=== PATIENT | female | born 1960 | race Two or more races ===

== ENCOUNTER 2016-11-05 12:16 | Emergency (ER) | payer OTHER ==
[~2016-11-05] VITALS: Ht 149.9 cm; Wt 54.5 kg
[2016-11-05] MEDS ORDERED: KETOROLAC TROMETHAMINE 60 MG/2 ML VIAL IM ONE (14:45)
[2016-11-05] MEDS ORDERED: HYDROCODONE/ACETAMINOPHEN 5-325 MG TABLET PO ONE (14:45)
[2016-11-05 15:11] VITALS: BP 139/77
== END 2016-11-05 15:35 | disposition home or self-care (01) ==
LOC: EMS 12:17
DX: S33.8XXA Sprain of other parts of lumbar spine and pelvis, initial encounter (principal); X58.XXXA Exposure to other specified factors, initial encounter; Y93.89 Activity, other specified; Y92.89 Other specified places as the place of occurrence of the external cause; Y99.8 Other external cause status
CPT/HCPCS: 96372; 99283; J1885

== ENCOUNTER → 2016-11-21 | Outpatient (CLI) | payer OTHER ==
[~2016-11-21] MED LIST: ACET-2247 PO
[2016-11-21 09:44] LABS: BASOPHILS # (AUTO) 0.06 K/uL (0.00-0.20); BASOPHILS % (AUTO) 1.1 % (0.0-2.0); EOSINOPHILS % (AUTO) 1.99 % (1.0-6.0); HEMATOCRIT 38.4 % (36-46); LYMPHOCYTES # (AUTO) 2.4 K/uL (1.0-4.8); LYMPHOCYTES % (AUTO) 47.1 % (22.0-44.0); MEAN CORPUSCULAR HGB CONC 33.8 G/dL (31.0-37.0); MEAN CORPUSCULAR VOLUME 92 fL (80-100); MONOCYTES # (AUTO) 0.4 K/uL (0.1-1.0); MONOCYTES % (AUTO) 6.8 % (2.0-9.0); NEUTROPHILS # (AUTO) 2.2 K/uL (1.8-7.7); PLATELET COUNT (AUTO) 274 K/uL (150-450); RED BLOOD CELL COUNT(AUTO) 4.18 MIL/uL (4.00-5.20); RED CELL DISTRIBUTION WIDTH 13.8 % (11.5-14.5); WHITE BLOOD COUNT (AUTO) 5.1 K/uL (4.5-11.0)
[2016-11-21 09:52] LABS: ANION GAP 9 mmol/L (8-16); ASPARTATE AMINOTRANSFERASE 26 U/L (15-37); BILIRUBIN,TOTAL 0.3 mg/dL (0.1-1.0); CALCIUM, TOTAL 8.9 mg/dL (8.8-10.5); CARBON DIOXIDE 26 mmol/L (22-29); CHLORIDE 104 mmol/L (98-107); CREATININE 0.64 mg/dL (0.60-1.30); GLOMERULAR FILTR. RATE CALC > 60 mL/min (>60); POTASSIUM 4.3 mmol/L (3.5-5.1); SODIUM SERUM 139 mmol/L (136-145); UREA NITROGEN, BLOOD 13 mg/dL (7-18)
[2016-11-21 09:53] LABS: ALANINE AMINOTRANSFERASE 46 U/L (12-78); ALBUMIN 3.9 g/dL (3.4-5.0); THYROID STIMULATING HORMONE 2.33 uIU/mL (0.36-3.74); TOTAL PROTEIN, SERUM 8.4 g/dL (6.4-8.2)
== END | disposition home or self-care (01) ==
LOC: LABPV 07:11
PROVIDERS: ATTEND Legal Medicine
DX: Z00.00 Encounter for general adult medical examination without abnormal findings (principal)
CPT/HCPCS: 82306; 84443

== ENCOUNTER → 2016-11-22 | Outpatient (CLI) | payer OTHER | END | disposition home or self-care (01) | LOC: RADMN 11:40 | PROVIDERS: ATTEND Legal Medicine | DX: M48.06 Spinal stenosis, lumbar region (principal) | CPT/HCPCS: 72148 ==

== ENCOUNTER 2017-01-14 08:08 | Emergency (ER) | payer OTHER ==
[~2017-01-14] VITALS: Ht 157.5 cm; Wt 65.9 kg
[2017-01-14] MEDS ORDERED: ACET-2247 PO (08:24)
[2017-01-14] MEDS ORDERED: SODIUM CHLORIDE 0.9% 1,000 ML IV ONE (09:00)
[2017-01-14 09:22] LABS: BASOPHILS # (AUTO) 0.04 K/uL (0.00-0.20); BASOPHILS % (AUTO) 0.9 % (0.0-2.0); EOSINOPHILS # (AUTO) 0.06 K/uL (0.00-0.70); HEMATOCRIT 39.3 % (36-46); HEMOGLOBIN 13.2 g/dL (12.0-16.0); LYMPHOCYTES # (AUTO) 0.9 K/uL (1.0-4.8); LYMPHOCYTES % (AUTO) 18.5 % (22.0-44.0); MEAN CORPUSCULAR HGB CONC 33.7 G/dL (31.0-37.0); MEAN CORPUSCULAR VOLUME 92 fL (80-100); MONOCYTES # (AUTO) 0.6 K/uL (0.1-1.0); MONOCYTES % (AUTO) 12.1 % (2.0-9.0); NEUTROPHILS # (AUTO) 3.1 K/uL (1.8-7.7); NEUTROPHILS % (AUTO) 67.2 % (40.0-70.0); PLATELET COUNT (AUTO) 200 K/uL (150-450); RED BLOOD CELL COUNT(AUTO) 4.27 MIL/uL (4.00-5.20); WHITE BLOOD COUNT (AUTO) 4.6 K/uL (4.5-11.0)
[2017-01-14 09:26] LABS: APPEARANCE,URINE CLEAR (CLEAR); GLUCOSE, URINE (UA) NEGATIVE (NEGATIVE); KETONES,URINE NEGATIVE (NEGATIVE); LEUKOCYTE ESTERASE ,URINE NEGATIVE (NEGATIVE); OCCULT BLOOD,URINE LARGE (NEGATIVE); PROTEIN,URINE NEGATIVE (NEGATIVE)
[2017-01-14 09:28] LABS: ADD UA MICROSCOPIC YES
[2017-01-14 09:32] LABS: ANION GAP 8 mmol/L (8-16); CALCIUM, TOTAL 8.8 mg/dL (8.8-10.5); CARBON DIOXIDE 29 mmol/L (22-29); CHLORIDE 102 mmol/L (98-107); CREATININE 0.69 mg/dL (0.60-1.30); GLOMERULAR FILTR. RATE CALC > 60 mL/min (>60); POTASSIUM 3.7 mmol/L (3.5-5.1); SODIUM SERUM 139 mmol/L (136-145); UREA NITROGEN, BLOOD 11 mg/dL (7-18)
[2017-01-14 09:38] LABS: ALANINE AMINOTRANSFERASE 46 U/L (12-78); ALBUMIN 4.3 g/dL (3.4-5.0); ASPARTATE AMINOTRANSFERASE 36 U/L (15-37); BILIRUBIN,TOTAL 0.2 mg/dL (0.1-1.0); TOTAL PROTEIN, SERUM 8.7 g/dL (6.4-8.2)
[2017-01-14 09:43] LABS: WBC,URINE 0-2 /HPF (0-5)
[2017-01-14 09:44] LABS: SQUAMOUS EPITHELIAL CELL,UR Few /LPF (None Seen)
[2017-01-14] MEDS ORDERED: KETOROLAC TROMETHAMINE 30 MG/ML VIAL IVP ONE (10:15)
[2017-01-14 10:50] VITALS: BP 127/76
== END 2017-01-14 11:02 | disposition home or self-care (01) ==
LOC: EMS 08:09
DX: R31.9 Hematuria, unspecified (principal); R50.9 Fever, unspecified
CPT/HCPCS: 36415; 80053; 81001; 85025; 96361; 96374; 99284; J1885; J7030

== ENCOUNTER 2017-04-07 12:44 | Emergency (ER) | payer OTHER ==
[~2017-04-07] VITALS: Ht 154.9 cm; Wt 133.0 kg
[2017-04-07 13:30] VITALS: BP 123/90
[2017-04-07] MEDS ORDERED: IBUPROFEN 600 MG TABLET PO ONE (14:00)
== END 2017-04-07 14:18 | disposition home or self-care (01) ==
LOC: EMS 12:51
DX: M79.671 Pain in right foot (principal); M79.672 Pain in left foot
CPT/HCPCS: 99282

== ENCOUNTER 2017-05-24 07:52 | Day surgery (SDC) | payer OTHER ==
[2017-05-22 09:30] LABS: BASOPHILS % (AUTO) 0.9 % (0.0-2.0); EOSINOPHILS % (AUTO) 0.7 % (1.0-6.0); HEMATOCRIT 38.7 % (36-46); HEMOGLOBIN 13.3 g/dL (12.0-16.0); LYMPHOCYTES # (AUTO) 2.4 K/uL (1.0-4.8); LYMPHOCYTES % (AUTO) 43.9 % (22.0-44.0); MEAN CORPUSCULAR HEMOGLOBIN 32.2 pg (26.0-34.0); MEAN CORPUSCULAR HGB CONC 34.4 G/dL (31.0-37.0); MEAN CORPUSCULAR VOLUME 94 fL (80-100); MONOCYTES # (AUTO) 0.4 K/uL (0.1-1.0); MONOCYTES % (AUTO) 7.4 % (2.0-9.0); NEUTROPHILS # (AUTO) 2.6 K/uL (1.8-7.7); NEUTROPHILS % (AUTO) 47.1 % (40.0-70.0); PLATELET COUNT (AUTO) 299 K/uL (150-450); RED BLOOD CELL COUNT(AUTO) 4.14 MIL/uL (4.00-5.20); RED CELL DISTRIBUTION WIDTH 13.9 % (11.5-14.5); WHITE BLOOD COUNT (AUTO) 5.6 K/uL (4.5-11.0)
[2017-05-22 09:41] LABS: ANION GAP 8 mmol/L (8-16); CALCIUM, TOTAL 8.8 mg/dL (8.8-10.5); CARBON DIOXIDE 28 mmol/L (22-29); CHLORIDE 104 mmol/L (98-107); CREATININE 0.66 mg/dL (0.60-1.30); GLOMERULAR FILTR. RATE CALC > 60 mL/min (>60); POTASSIUM 3.7 mmol/L (3.5-5.1); SODIUM SERUM 140 mmol/L (136-145); UREA NITROGEN, BLOOD 13 mg/dL (7-18)
[~2017-05-24] VITALS: Ht 149.9 cm; Wt 54.5 kg
[~2017-05-24 07:52] MED LIST changes: -ACET-2247 PO; +CeFAZolin 2 GM/DEXTROSE 50 ML IV ONE; +RINGERS SOLUTION,LACTATED 1,000 ML IV ONE
[2017-05-24] MEDS ORDERED: MIDAZOLAM HCL 2 MG/2 ML VIAL IVP ONE (07:53)
[2017-05-24] MEDS ORDERED: PROPOFOL 1% 20 ML VIAL IVP ONE (07:53)
[2017-05-24] MEDS ORDERED: PHENYLEPHRINE HCL 10 MG/ML VIAL IVP ONE (07:53)
[2017-05-24] MEDS ORDERED: KETOROLAC TROMETHAMINE 60 MG/2 ML VIAL IM ONE (07:53)
[2017-05-24] MEDS ORDERED: LIDOCAINE HCL/PF 2% 5 ML VIAL INJ ONE (07:53)
[2017-05-24] MEDS ORDERED: WATER FOR INJECTION STERILE IV ONE (07:53)
[2017-05-24] MEDS ORDERED: DEXAMETHASONE SOD PHOS 4 MG/ML VIAL IVP ONE (07:53)
[2017-05-24] MEDS ORDERED: FentaNYL CITRATE-PF 100 MCG/2 ML VIAL IVP ONE (07:53)
[2017-05-24] MEDS ORDERED: OXYGEN THERAPY IH SCH (08:00)
[2017-05-24] MEDS ORDERED: CeFAZolin 2 GM/DEXTROSE 50 ML IV ONE (08:00)
[2017-05-24] MEDS ORDERED: RINGERS SOLUTION,LACTATED 1,000 ML IV ONE (08:30)
[2017-05-24] MEDS ORDERED: SODIUM CL IRRIG SOLN BAG 3,000 ML IRRIG ONE (08:54)
[2017-05-24] MEDS ORDERED: FentaNYL CITRATE-PF 100 MCG/2 ML VIAL IVP PRN (10:15)
[2017-05-24] MEDS ORDERED: HYDROmorphone 2 MG/ML SYRINGE IVP PRN ×2 (10:15→10:45)
[2017-05-24] MEDS ORDERED: MEPERIDINE-PF 25 MG/ML SYRINGE IVP PRN (10:15)
[2017-05-24] MEDS ORDERED: ACETAMINOPHEN 325 MG TABLET PO PRN (10:45)
[2017-05-24] MEDS ORDERED: HYDROCODONE/ACETAMINOPHEN 5-325 MG TABLET PO PRN (10:45)
[2017-05-24] MEDS ORDERED: CIPR250S4 PO (10:49)
[2017-05-24] MEDS ORDERED: HYDR-309 PO (10:51)
[2017-05-24] MEDS ORDERED: MEPERIDINE-PF 25 MG/ML SYRINGE ONE (11:05)
== END 2017-05-24 12:20 | disposition home or self-care (01) ==
LOC: SURGERY 07:52
PROVIDERS: ATTEND Urology
DX: N30.80 Other cystitis without hematuria (principal); Z98.890 Other specified postprocedural states
CPT/HCPCS: 36415 ×2; 52281; 80048; 85025; 85610; 85730; 93005; J0690; J2175; J7120; J1100; J1885; J2250; J2370; J2704; J3010; J3490

== ENCOUNTER 2017-08-19 10:47 | Emergency (ER) | payer OTHER ==
[~2017-08-19] VITALS: Ht 154.9 cm; Wt 56.8 kg
[~2017-08-19 10:47] MED LIST changes: +CIPR250S4 PO; -CeFAZolin 2 GM/DEXTROSE 50 ML IV ONE; +HYDR-309 PO; -RINGERS SOLUTION,LACTATED 1,000 ML IV ONE
[2017-08-19 11:27] LABS: APPEARANCE,URINE CLOUDY (CLEAR); GLUCOSE, URINE (UA) NEGATIVE (NEGATIVE); KETONES,URINE NEGATIVE (NEGATIVE); LEUKOCYTE ESTERASE ,URINE LARGE (NEGATIVE); OCCULT BLOOD,URINE LARGE (NEGATIVE); PROTEIN,URINE TRACE (NEGATIVE)
[2017-08-19 11:38] LABS: RBC,URINE 26-50 /HPF (0-2); WBC,URINE 51-100 /HPF (0-5)
[2017-08-19 11:39] LABS: SQUAMOUS EPITHELIAL CELL,UR Moderate /LPF (None Seen)
[2017-08-19] MEDS ORDERED: CefTRIAXone SODIUM 1 GM/VIAL IM ONE (14:30)
[2017-08-19] MEDS ORDERED: LIDOCAINE HCL/PF 1% 2 ML VIAL IM ONE (14:30)
[2017-08-19 14:41] LABS: BASOPHILS % (AUTO) 0.5 % (0.0-2.0); EOSINOPHILS % (AUTO) 0.6 % (1.0-6.0); HEMOGLOBIN 12.9 g/dL (12.0-16.0); LYMPHOCYTES # (AUTO) 2.3 K/uL (1.0-4.8); LYMPHOCYTES % (AUTO) 21.8 % (22.0-44.0); MEAN CORPUSCULAR HEMOGLOBIN 31.5 pg (26.0-34.0); MEAN CORPUSCULAR HGB CONC 33.9 G/dL (31.0-37.0); MEAN CORPUSCULAR VOLUME 93 fL (80-100); MONOCYTES # (AUTO) 0.6 K/uL (0.1-1.0); MONOCYTES % (AUTO) 5.6 % (2.0-9.0); NEUTROPHILS # (AUTO) 7.4 K/uL (1.8-7.7); NEUTROPHILS % (AUTO) 71.5 % (40.0-70.0); PLATELET COUNT (AUTO) 348 K/uL (150-450); RED BLOOD CELL COUNT(AUTO) 4.08 MIL/uL (4.00-5.20); WHITE BLOOD COUNT (AUTO) 10.4 K/uL (4.5-11.0)
[2017-08-19 15:00] VITALS: BP 126/64
[2017-08-19] MEDS ORDERED: HYDROCODONE/ACETAMINOPHEN 5-325 MG TABLET PO ONE (15:00)
[2017-08-19 15:01] LABS: ANION GAP 9 mmol/L (8-16); CALCIUM, TOTAL 9.4 mg/dL (8.8-10.5); CARBON DIOXIDE 29 mmol/L (22-29); CHLORIDE 103 mmol/L (98-107); CREATININE 0.57 mg/dL (0.60-1.30); GLOMERULAR FILTR. RATE CALC > 60 mL/min (>60); POTASSIUM 4.4 mmol/L (3.5-5.1); SODIUM SERUM 141 mmol/L (136-145); UREA NITROGEN, BLOOD 14 mg/dL (7-18)
== END 2017-08-19 15:30 | disposition home or self-care (01) ==
LOC: EMS 10:55
DX: N39.0 Urinary tract infection, site not specified (principal)
CPT/HCPCS: 36415; 80048; 81001; 85025; 87077; 87086; 87186; 96372; 99284; J0696; J3490

== ENCOUNTER → 2017-12-04 | Outpatient (CLI) | payer OTHER | END | disposition home or self-care (01) | LOC: RADPV 07:16 | PROVIDERS: ATTEND Legal Medicine | DX: M75.32 Calcific tendinitis of left shoulder (principal) ==

== ENCOUNTER → 2018-01-01 | Outpatient (CLI) | payer OTHER | END | disposition home or self-care (01) | LOC: RADPV 15:49 | PROVIDERS: ATTEND Legal Medicine | DX: N81.2 Incomplete uterovaginal prolapse (principal) | CPT/HCPCS: 76856 ==

== ENCOUNTER → 2018-01-29 | Outpatient (CLI) | payer OTHER ==
[2018-01-29 12:52] LABS: BASOPHILS % (AUTO) 1.4 % (0.0-2.0); EOSINOPHILS % (AUTO) 1.6 % (1.0-6.0); HEMOGLOBIN 12.2 g/dL (12.0-16.0); LYMPHOCYTES # (AUTO) 2.7 K/uL (1.0-4.8); LYMPHOCYTES % (AUTO) 47.3 % (22.0-44.0); MEAN CORPUSCULAR HEMOGLOBIN 31.5 pg (26.0-34.0); MEAN CORPUSCULAR HGB CONC 34.9 G/dL (31.0-37.0); MEAN CORPUSCULAR VOLUME 90 fL (80-100); MONOCYTES # (AUTO) 0.4 K/uL (0.1-1.0); MONOCYTES % (AUTO) 7.3 % (2.0-9.0); NEUTROPHILS # (AUTO) 2.4 K/uL (1.8-7.7); NEUTROPHILS % (AUTO) 42.4 % (40.0-70.0); PLATELET COUNT (AUTO) 260 K/uL (150-450); RED BLOOD CELL COUNT(AUTO) 3.88 MIL/uL (4.00-5.20); RED CELL DISTRIBUTION WIDTH 13.8 % (11.5-14.5)
[2018-01-29 13:02] LABS: APPEARANCE,URINE CLOUDY (CLEAR); BILIRUBIN,URINE NEGATIVE (NEGATIVE); GLUCOSE, URINE (UA) NEGATIVE (NEGATIVE); KETONES,URINE NEGATIVE (NEGATIVE); LEUKOCYTE ESTERASE ,URINE SMALL (NEGATIVE); NITRATE,URINE POSITIVE (NEGATIVE); OCCULT BLOOD,URINE SMALL (NEGATIVE); PH,URINE 6.5 (5.0-8.0); PROTEIN,URINE NEGATIVE (NEGATIVE); UROBILINOGEN,URINE 0.2 mg/dL (<=1.0)
[2018-01-29 13:13] LABS: BACTERIA,URINE Moderate /HPF (None Seen)
[2018-01-29 13:14] LABS: SQUAMOUS EPITHELIAL CELL,UR Moderate /LPF (None Seen)
[2018-01-29 13:34] LABS: ALANINE AMINOTRANSFERASE 30 U/L (12-78); ALBUMIN 3.8 g/dL (3.4-5.0); ALKALINE PHOSPHATASE 101 U/L (46-116); ANION GAP 5 mmol/L (8-16); ASPARTATE AMINOTRANSFERASE 17 U/L (15-37); BILIRUBIN,TOTAL 0.2 mg/dL (0.1-1.0); CALCIUM, TOTAL 8.1 mg/dL (8.8-10.5); CARBON DIOXIDE 28 mmol/L (22-29); CHLORIDE 104 mmol/L (98-107); CREATININE 0.61 mg/dL (0.60-1.30); GLOMERULAR FILTR. RATE CALC > 60 mL/min (>60); GLUCOSE,RANDOM 103 mg/dL (70-110); POTASSIUM 3.6 mmol/L (3.5-5.1); SODIUM SERUM 137 mmol/L (136-145); THYROID STIMULATING HORMONE 3.35 uIU/mL (0.36-3.74); TOTAL PROTEIN, SERUM 7.7 g/dL (6.4-8.2); UREA NITROGEN, BLOOD 19 mg/dL (7-18)
== END | disposition home or self-care (01) ==
LOC: LABPV 12:27
PROVIDERS: ATTEND Legal Medicine
DX: M54.5 Low back pain (principal); M19.90 Unspecified osteoarthritis, unspecified site; N30.90 Cystitis, unspecified without hematuria
CPT/HCPCS: 82306; 84443; 87086

== ENCOUNTER → 2019-03-05 | Outpatient (CLI) | payer OTHER ==
[2019-03-06 13:02] LABS: RUBEOLA (MEASLES) IGG >300.0 AU/mL (Immune >29.9)
== END | disposition home or self-care (01) ==
LOC: EMPHLTH 14:31
PROVIDERS: ATTEND Internal Medicine
DX: Z02.1 Encounter for pre-employment examination (principal); E78.5 Hyperlipidemia, unspecified
CPT/HCPCS: 86706; 86735; 86762; 86765; 86787

== ENCOUNTER → 2019-08-01 | Outpatient (CLI) | payer OTHER ==
[2019-08-01 12:01] LABS: BASOPHILS % (AUTO) 0.4 % (0.0-2.0); HEMATOCRIT 38.2 % (36-46); LYMPHOCYTES # (AUTO) 1.9 K/uL (1.0-4.8); LYMPHOCYTES % (AUTO) 42.5 % (22.0-44.0); MEAN CORPUSCULAR HEMOGLOBIN 31.8 pg (26.0-34.0); MEAN CORPUSCULAR HGB CONC 33.9 G/dL (31.0-37.0); MEAN CORPUSCULAR VOLUME 94 fL (80-100); MONOCYTES # (AUTO) 0.3 K/uL (0.1-1.0); MONOCYTES % (AUTO) 6.9 % (2.0-9.0); NEUTROPHILS # (AUTO) 2.1 K/uL (1.8-7.7); NEUTROPHILS % (AUTO) 48.2 % (40.0-70.0); PLATELET COUNT (AUTO) 280 K/uL (150-450); RED BLOOD CELL COUNT(AUTO) 4.08 MIL/uL (4.00-5.20); RED CELL DISTRIBUTION WIDTH 14.4 % (11.5-14.5)
[2019-08-01 12:19] LABS: ALANINE AMINOTRANSFERASE 23 U/L (12-78); ALBUMIN 3.5 g/dL (3.4-5.0); ALKALINE PHOSPHATASE 80 U/L (46-116); ANION GAP 8 mmol/L (8-16); ASPARTATE AMINOTRANSFERASE 25 U/L (15-37); BILIRUBIN,TOTAL 0.4 mg/dL (0.1-1.0); CALCIUM, TOTAL 8.7 mg/dL (8.8-10.5); CARBON DIOXIDE 28 mmol/L (22-29); CHLORIDE 104 mmol/L (98-107); CREATININE 0.69 mg/dL (0.60-1.30); GLOMERULAR FILTR. RATE CALC > 60 mL/min (>60); GLUCOSE,RANDOM 90 mg/dL (70-110); POTASSIUM 4.6 mmol/L (3.5-5.1); SODIUM SERUM 140 mmol/L (136-145); TOTAL PROTEIN, SERUM 7.7 g/dL (6.4-8.2); UREA NITROGEN, BLOOD 17 mg/dL (7-18)
[2019-08-01 12:51] LABS: FOLATE SERUM 20.9 ng/mL (5.4-); VITAMIN D,TOTAL (25-0H) 19 ng/mL (30-100)
[2019-08-01 12:52] LABS: ERYTHROCYTE SEDIMENTATION RATE 22 MM/HR (0-20)
[2019-08-01 12:56] LABS: VITAMIN B12 LEVEL > 2000 pg/mL (211-911)
== END | disposition home or self-care (01) ==
LOC: LABPV 07:28
PROVIDERS: ATTEND Legal Medicine
DX: M19.90 Unspecified osteoarthritis, unspecified site (principal)
CPT/HCPCS: 82306; 82607; 82746; 85651

== ENCOUNTER → 2019-09-16 | Outpatient (CLI) | payer OTHER | END | disposition home or self-care (01) | LOC: RADMN 16:12 | PROVIDERS: ATTEND Legal Medicine | DX: M13.811 Other specified arthritis, right shoulder (principal) ==

== ENCOUNTER → 2019-09-17 | Outpatient (CLI) | payer OTHER ==
[2019-09-17 10:06] LABS: EOSINOPHILS % (AUTO) 1.2 % (1.0-6.0); HEMATOCRIT 38.7 % (36-46); HEMOGLOBIN 12.9 g/dL (12.0-16.0); LYMPHOCYTES # (AUTO) 2.2 K/uL (1.0-4.8); LYMPHOCYTES % (AUTO) 45.4 % (22.0-44.0); MEAN CORPUSCULAR HEMOGLOBIN 31.1 pg (26.0-34.0); MEAN CORPUSCULAR HGB CONC 33.3 G/dL (31.0-37.0); MEAN CORPUSCULAR VOLUME 93 fL (80-100); MONOCYTES # (AUTO) 0.3 K/uL (0.1-1.0); NEUTROPHILS # (AUTO) 2.2 K/uL (1.8-7.7); NEUTROPHILS % (AUTO) 46.4 % (40.0-70.0); PLATELET COUNT (AUTO) 321 K/uL (150-450); RED BLOOD CELL COUNT(AUTO) 4.14 MIL/uL (4.00-5.20)
[2019-09-17 10:16] LABS: ALANINE AMINOTRANSFERASE 41 U/L (12-78); ALKALINE PHOSPHATASE 99 U/L (46-116); ANION GAP 9 mmol/L (8-16); ASPARTATE AMINOTRANSFERASE 23 U/L (15-37); BILIRUBIN,TOTAL 0.5 mg/dL (0.1-1.0); CALCIUM, TOTAL 9.1 mg/dL (8.8-10.5); CARBON DIOXIDE 27 mmol/L (22-29); CHLORIDE 105 mmol/L (98-107); CREATININE 0.63 mg/dL (0.60-1.30); GLOMERULAR FILTR. RATE CALC > 60 mL/min (>60); GLUCOSE,RANDOM 90 mg/dL (70-110); POTASSIUM 4.2 mmol/L (3.5-5.1); SODIUM SERUM 141 mmol/L (136-145); UREA NITROGEN, BLOOD 14 mg/dL (7-18)
[2019-09-17 11:15] LABS: ERYTHROCYTE SEDIMENTATION RATE 13 MM/HR (0-20)
== END | disposition home or self-care (01) ==
LOC: LABPV 08:48
PROVIDERS: ATTEND Legal Medicine
DX: M19.90 Unspecified osteoarthritis, unspecified site (principal); M75.32 Calcific tendinitis of left shoulder
CPT/HCPCS: 82306; 85651; 86430

== ENCOUNTER → 2020-01-29 | Outpatient (CLI) | payer OTHER | END | disposition home or self-care (01) | LOC: RADPV 07:42 | PROVIDERS: ATTEND Legal Medicine | DX: M25.541 Pain in joints of right hand (principal); M25.542 Pain in joints of left hand; M25.571 Pain in right ankle and joints of right foot; M25.572 Pain in left ankle and joints of left foot ==

== ENCOUNTER → 2020-05-06 | Outpatient (CLI) | payer OTHER | END | disposition home or self-care (01) | LOC: EMS 16:04 | DX: Z20.828 Contact with and (suspected) exposure to other viral communicable diseases (principal) | CPT/HCPCS: U0003-CS ==

== ENCOUNTER → 2020-06-26 | Outpatient (CLI) | payer OTHER | END | disposition home or self-care (01) | LOC: RADPV 09:36 | PROVIDERS: ATTEND Internal Medicine Rheumatology | DX: M85.88 Other specified disorders of bone density and structure, other site (principal) | CPT/HCPCS: 77080 ==

== ENCOUNTER → 2020-11-19 | Outpatient (CLI) | payer OTHER | END | disposition home or self-care (01) | LOC: RADMN 14:34 | PROVIDERS: ATTEND Nurse Practitioner | DX: M19.012 Primary osteoarthritis, left shoulder (principal); D17.79 Benign lipomatous neoplasm of other sites; M62.512 Muscle wasting and atrophy, not elsewhere classified, left shoulder; M25.412 Effusion, left shoulder | CPT/HCPCS: 73221 ==

== ENCOUNTER → 2020-11-24 | Outpatient (CLI) | payer OTHER | END | disposition home or self-care (01) | LOC: RADPV 07:18 | PROVIDERS: ATTEND Nurse Practitioner | DX: R10.11 Right upper quadrant pain (principal); M25.512 Pain in left shoulder; Z90.49 Acquired absence of other specified parts of digestive tract | CPT/HCPCS: 76700 ==

== ENCOUNTER → 2020-12-07 | Outpatient (CLI) | payer OTHER ==
[2020-12-07 10:04] LABS: HEMATOCRIT 37.7 % (36-46); HEMOGLOBIN 12.6 g/dL (12.0-16.0); LYMPHOCYTES # (AUTO) 2.2 K/uL (1.0-4.8); LYMPHOCYTES % (AUTO) 40.1 % (22.0-44.0); MEAN CORPUSCULAR HEMOGLOBIN 31.3 pg (26.0-34.0); MEAN CORPUSCULAR HGB CONC 33.4 G/dL (31.0-37.0); MEAN CORPUSCULAR VOLUME 94 fL (80-100); MONOCYTES # (AUTO) 0.4 K/uL (0.1-1.0); MONOCYTES % (AUTO) 7.6 % (2.0-9.0); NEUTROPHILS # (AUTO) 2.7 K/uL (1.8-7.7); NEUTROPHILS % (AUTO) 49.3 % (40.0-70.0); PLATELET COUNT (AUTO) 295 K/uL (150-450); RED BLOOD CELL COUNT(AUTO) 4.03 MIL/uL (4.00-5.20); RED CELL DISTRIBUTION WIDTH 13.2 % (11.5-14.5)
[2020-12-07 10:26] LABS: ALANINE AMINOTRANSFERASE 42 U/L (12-78); ALBUMIN 3.9 g/dL (3.4-5.0); ALKALINE PHOSPHATASE 104 U/L (46-116); ANION GAP 19 mmol/L (8-16); ASPARTATE AMINOTRANSFERASE 25 U/L (15-37); BILIRUBIN,TOTAL 0.3 mg/dL (0.1-1.0); CALCIUM, TOTAL 8.8 mg/dL (8.8-10.5); CARBON DIOXIDE 26 mmol/L (22-29); CHLORIDE 104 mmol/L (98-107); CHOL/HDL RATIO 4.1 (3.9-5.7); CHOLESTEROL 184 mg/dL (131-200); CREATININE 0.75 mg/dL (0.60-1.30); GLOMERULAR FILTR. RATE CALC > 60 mL/min (>60); GLUCOSE,RANDOM 101 mg/dL (70-110); HDL CHOLESTEROL 45 mg/dL (40-60); LDL CHOL (CALC.) 97 mg/dL (0-130); POTASSIUM 4.7 mmol/L (3.5-5.1); SODIUM SERUM 149 mmol/L (136-145); TOTAL PROTEIN, SERUM 7.9 g/dL (6.4-8.2); TRIGLYCERIDES 209 mg/dL (15-150); UREA NITROGEN, BLOOD 15 mg/dL (7-18)
== END | disposition home or self-care (01) ==
LOC: LABPV 07:16
PROVIDERS: ATTEND Nurse Practitioner
DX: Z00.01 Encounter for general adult medical examination with abnormal findings (principal); Z00.00 Encounter for general adult medical examination without abnormal findings

== ENCOUNTER → 2021-06-08 | Outpatient (CLI) | payer OTHER ==
[2021-06-08 16:57] LABS: UREA NITROGEN, BLOOD 16 mg/dL (7-18)
[2021-06-14 11:16] LABS: ALANINE AMINOTRANSFERASE 43 U/L (12-78); ALBUMIN 4.2 g/dL (3.4-5.0); ALKALINE PHOSPHATASE 108 U/L (46-116); ANION GAP 13 mmol/L (8-16); ASPARTATE AMINOTRANSFERASE 31 U/L (15-37); BILIRUBIN,TOTAL 0.1 mg/dL (0.1-1.0); CALCIUM, TOTAL 8.8 mg/dL (8.8-10.5); CARBON DIOXIDE 25 mmol/L (22-29); CHLORIDE 103 mmol/L (98-107); CREATININE 0.73 mg/dL (0.60-1.30); GLOMERULAR FILTR. RATE CALC > 60 mL/min (>60); GLUCOSE,RANDOM 76 mg/dL (70-110); POTASSIUM 4.8 mmol/L (3.5-5.1); SODIUM SERUM 141 mmol/L (136-145); TOTAL PROTEIN, SERUM 8.3 g/dL (6.4-8.2)
== END | disposition home or self-care (01) ==
LOC: LABMN 15:48
PROVIDERS: ATTEND Orthopaedic Surgery Hand Surgery
DX: R22.32 Localized swelling, mass and lump, left upper limb (principal)
CPT/HCPCS: 80053; 84520

== ENCOUNTER → 2021-06-14 | Outpatient (CLI) | payer OTHER ==
[~2021-06-14] MED LIST changes: -CIPR250S4 PO; +GADOTERATE MEGLUMINE 10 MMOL/20 ML VIAL IVP ONE; -HYDR-309 PO
== END | disposition home or self-care (01) ==
LOC: RADMN 14:37
PROVIDERS: ATTEND Orthopaedic Surgery Hand Surgery
DX: M19.012 Primary osteoarthritis, left shoulder (principal); M25.552 Pain in left hip; R22.32 Localized swelling, mass and lump, left upper limb
CPT/HCPCS: 73220; 73503; Q9967

== ENCOUNTER → 2021-07-05 | Outpatient (CLI) | payer OTHER | END | disposition home or self-care (01) | LOC: RADMN 14:06 | PROVIDERS: ATTEND Orthopaedic Surgery Hand Surgery | DX: M25.552 Pain in left hip (principal) | CPT/HCPCS: 72195 ==

== ENCOUNTER → 2021-08-02 | Outpatient (CLI) | payer OTHER | END | disposition home or self-care (01) | LOC: RADMN 09:29 | PROVIDERS: ATTEND Orthopaedic Surgery Adult Reconstructive Orthopaedic Surgery | DX: M50.122 Cervical disc disorder at C5-C6 level with radiculopathy (principal); M48.02 Spinal stenosis, cervical region; D49.2 Neoplasm of unspecified behavior of bone, soft tissue, and skin; Z90.49 Acquired absence of other specified parts of digestive tract | CPT/HCPCS: 71046; 72141 ==

== ENCOUNTER → 2025-06-03 | Outpatient (CLI) | payer OTHER ==
[2025-06-03 07:04] LABS: PLATELET COUNT (AUTO) 302 K/uL (150-450); RED BLOOD CELL COUNT(AUTO) 3.98 MIL/uL (4.00-5.20); RED CELL DISTRIBUTION WIDTH 13.5 % (11.5-14.5); WHITE BLOOD COUNT (AUTO) 4.8 K/uL (4.5-11.0)
[2025-06-03 07:29] LABS: ASPARTATE AMINOTRANSFERASE 19 U/L (15-37); CALCIUM, TOTAL 8.5 mg/dL (8.8-10.5); CHOL/HDL RATIO 4.3 (3.9-5.7); CREATININE 0.59 mg/dL (0.60-1.30); GLOMERULAR FILTR. RATE CALC > 60 mL/min (>60); GLUCOSE,RANDOM 91 mg/dL (70-110); LDL CHOL (CALC.) 89 mg/dL (0-130); SODIUM SERUM 139 mmol/L (136-145); TOTAL PROTEIN, SERUM 7.6 g/dL (6.4-8.2); UREA NITROGEN, BLOOD 15 mg/dL (7-18)
== END | disposition home or self-care (01) ==
LOC: LABMN 06:35
PROVIDERS: ATTEND Nurse Practitioner
DX: E55.9 Vitamin D deficiency, unspecified (principal); E78.5 Hyperlipidemia, unspecified
CPT/HCPCS: 80053; 80061; 82306; 85025